=== PATIENT | male | born 1985 | race Two or more races ===

== ENCOUNTER 2017-11-16 04:15 | Emergency (ER) | payer OTHER ==
[~2017-11-16] VITALS: Ht 175.3 cm; Wt 113.0 kg
[2017-11-16] MEDS ORDERED: MECL-111 PO (04:20)
[2017-11-16] MEDS ORDERED: ONDANSETRON HCL 4 MG/2 ML VIAL IVP ONE (04:45)
[2017-11-16] MEDS ORDERED: SODIUM CHLORIDE 0.9% 1,000 ML IV ONE (04:45)
[2017-11-16] MEDS ORDERED: MECLIZINE HCL 25 MG TABLET PO ONE (06:15)
[2017-11-16 08:29] VITALS: BP 112/83
== END 2017-11-16 08:38 | disposition home or self-care (01) ==
LOC: EMS 04:16
DX: R42 Dizziness and giddiness (principal); R11.2 Nausea with vomiting, unspecified
CPT/HCPCS: 70450; 96361; 96374; 99285; J2405; J7030